=== PATIENT | male | born 1945 | race Caucasian/White ===

== ENCOUNTER 2018-06-28 22:39 | Inpatient (IN) | payer OTHER ==
[~2018-06-28] VITALS: Ht 182.9 cm; Wt 90.1 kg
[2018-06-28 23:29] LABS: Basophils # (auto) 0.1 uL; Basophils % (auto) 0.7 % (0.0-2.0); Eosinophils # (auto) 0.1 uL; Eosinophils % (auto) 0.8 % (0.0-7.0); Hematocrit 39.2 % (41.0-53.0); Hemoglobin 12.8 g/dL (13.5-17.5); Lymphocytes # (auto) 1.5 uL; Lymphocytes % (auto) 9.1 % (10.0-50.0); Mean Corpuscular Hgb Conc. 32.5 g/dL (32.0-36.0); Mean Corpuscular Volume 98.5 fL (80.0-100.0); Monocytes # (auto) 1.3 uL; Monocytes % (auto) 7.4 % (0.0-12.0); Neutrophils # (auto) 13.8 uL; Platelet Count (auto) 264 10^3/uL (140-450); Red Blood Cells 3.98 10^6/uL (4.5-5.90); Red Cell Distribution Width 13.5 % (11.8-14.3); White Blood Cell 16.8 10^3/uL (4.4-10.8)
[2018-06-28 23:45] LABS: Albumin 2.4 g/dL (3.4-5.0); BUN/Creatinine Ratio 17.6; Calcium 7.8 mg/dL (8.5-10.1); Potassium 3.8 mmol/L (3.5-5.1)
[2018-06-28 23:50] LABS: Bilirubin, Total 0.9 mg/dL (0.2-1.0); Total Protein 7.4 g/dL (6.4-8.2)
[2018-06-29] VITALS (65 sets, daily range): BP systolic 87–171; BP diastolic 35–116
[2018-06-29] MEDS ORDERED: FUROSEMIDE 20 MG/2 ML VIAL IV ONE (01:00)
[2018-06-29] MEDS ORDERED: NOREPINEPHRINE 8 MG/250ML KIT 250 ML IV ONE (01:22)
[2018-06-29 01:44] LABS: Alcohol, Urine < 3.0 mg/dL (0-5); Amphetamine Screen, Urine NEGATIVE (NEGATIVE); Barbiturate Scree,Urine NEGATIVE (NEGATIVE); Benzodiazephine Screen, Urine NEGATIVE (NEGATIVE); Cannabinoid Screen, Urine NEGATIVE (NEGATIVE); Cocaine Screen, Urine NEGATIVE (NEGATIVE); Opiate Scree,Urine NEGATIVE (NEGATIVE); Phencyclidine Screen, Urine NEGATIVE (NEGATIVE)
[2018-06-29] MEDS: NOREPINEPHRINE 8 MG/250ML KIT 250 ML IV SCH (01:52)
[2018-06-29] MEDS ORDERED: LEVOFLOXACIN 750MG 150 ML IV ONE (03:30)
[2018-06-29] MEDS: SODIUM CHLORIDE 0.9% 1,000 ML IV SCH ×2 (03:52→10:20)
[2018-06-29] MEDS ORDERED: ACETAMINOPHEN 325 MG TAB PO PRN (04:00)
[2018-06-29] MEDS ORDERED: ONDANSETRON HCL 4 MG/2 ML VIAL IV PRN (04:00)
[2018-06-29] MEDS ORDERED: ATORVASTATIN 20 MG TAB PO ONE (04:00)
[2018-06-29] MEDS ORDERED: ENOXAPARIN SOD 100 MG/1 ML SYRINGE SC ONE (04:00)
[2018-06-29] MEDS ORDERED: NITROGLYCERIN 0.4 MG SL TAB SL PRN (04:00)
[2018-06-29] MEDS ORDERED: MORPHINE SULFATE 4 MG/ML SYR/VIAL IV PRN (04:00)
[2018-06-29] MEDS: ENOXAPARIN SOD 40 MG/0.4 ML SYRINGE SC SCH (10:08)
[2018-06-29] MEDS: ASPirin 81 mg TAB PO SCH (10:08)
[2018-06-29] MEDS: FAMOTIDINE 20 MG TAB PO SCH ×2 (10:08→21:51)
[2018-06-29] MEDS: LEVOFLOXACIN 500MG 100 ML IV SCH (10:08)
[2018-06-29] MEDS: HYDROcodone-ACET 5/325MG TAB PO PRN ×2 (13:12→21:52)
[2018-06-29] MEDS ORDERED: LACT12CR17 EX (14:21)
[2018-06-29] MEDS ORDERED: [UNRECOGNIZED DRUG - CODE] PO (14:21)
[2018-06-29] MEDS ORDERED: ONDA4TAB5 PO (14:21)
[2018-06-29] MEDS ORDERED: TOPI100T68 PO (14:21)
[2018-06-29] MEDS ORDERED: DOCU-94 PO (14:21)
[2018-06-29] MEDS ORDERED: KETO2CRE4 TOP (14:21)
[2018-06-29] MEDS ORDERED: DILT-5 PO (14:21)
[2018-06-29] MEDS ORDERED: [UNRECOGNIZED DRUG - CODE] PO (14:21)
[2018-06-29] MEDS ORDERED: OXY10CRT PO (14:21)
[2018-06-29] MEDS ORDERED: ASPI-266 PO (14:21)
[2018-06-29] MEDS ORDERED: OME20T PO (14:21)
[2018-06-29] MEDS ORDERED: SIMV10TA84 PO (14:21)
[2018-06-29] MEDS ORDERED: CYCL1TAB18 PO (14:21)
[2018-06-29] MEDS ORDERED: VENL75TA PO (14:21)
[2018-06-29] MEDS: MORPHINE SULFATE 4 MG/ML SYR/VIAL IV PRN ×2 (14:51→20:09)
[2018-06-29 15:22] LABS: Basophils # (auto) 0 uL; Basophils % (auto) 0.3 % (0.0-2.0); Eosinophils # (auto) 0.1 uL; Eosinophils % (auto) 0.4 % (0.0-7.0); Hematocrit 40.5 % (41.0-53.0); Hemoglobin 13.4 g/dL (13.5-17.5); Lymphocytes # (auto) 0.9 uL; Lymphocytes % (auto) 6.7 % (10.0-50.0); Mean Corpuscular Hemoglobin 32.1 pg (28.0-32.0); Mean Corpuscular Volume 97.2 fL (80.0-100.0); Monocytes # (auto) 0.7 uL; Monocytes % (auto) 5.5 % (0.0-12.0); Neutrophils # (auto) 11.8 uL; Neutrophils % (auto) 87.1 % (37.0-80.0); Platelet Count (auto) 267 10^3/uL (140-450); Red Blood Cells 4.16 10^6/uL (4.5-5.90); Red Cell Distribution Width 13.5 % (11.8-14.3); White Blood Cell 13.5 10^3/uL (4.4-10.8)
[2018-06-29 15:35] LABS: Albumin 2.3 g/dL (3.4-5.0); Calcium 8.1 mg/dL (8.5-10.1); Magnesium 2.5 mg/dL (1.6-2.6); Potassium 3.4 mmol/L (3.5-5.1)
[2018-06-29 15:38] LABS: BUN/Creatinine Ratio 17.6; Bilirubin, Total 0.9 mg/dL (0.2-1.0); Total Protein 7.2 g/dL (6.4-8.2)
[2018-06-29] MEDS ORDERED: POTASSIUM CHL 20 Meq TABLET PO ONE (16:15)
[2018-06-29] MEDS ORDERED: POTASSIUM EFFERVESENT TAB 25 MEQ ONE (18:15)
[2018-06-29] MEDS ORDERED: POTASSIUM EFFERVESENT TAB 25 MEQ PO ONE (18:15)
[2018-06-29] MEDS: ATORVASTATIN 20 MG TAB PO SCH (21:51)
[2018-06-29] MEDS: TEMAZEPAM 15 MG CAP PO PRN (21:52)
[2018-06-29 22:41] LABS: Urine Bacteria NONE SEEN /hpf (None Seen); Urine Blood 1+ /uL (Negative); Urine Specific Gravity 1.014 (1.001-1.035); Urine WBC 1 /hpf (0 - 3)
[2018-06-30] VITALS (39 sets, daily range): BP systolic 96–167; BP diastolic 40–112
[2018-06-30] MEDS: NOREPINEPHRINE 8 MG/250ML KIT 250 ML IV SCH (01:16)
[2018-06-30] MEDS ORDERED: ALBUTEROL SULF 2.5 MG/0.5ML(0.5%) NEB SOLN NEB PRN (03:15)
[2018-06-30] MEDS ORDERED: IOHEXOL 350 MG/ML 100ML IJ ONE (03:18)
[2018-06-30 04:07] LABS: Basophils # (auto) 0.1 uL; Basophils % (auto) 0.5 % (0.0-2.0); Eosinophils # (auto) 0.1 uL; Eosinophils % (auto) 0.5 % (0.0-7.0); Hematocrit 36.4 % (41.0-53.0); Hemoglobin 12.3 g/dL (13.5-17.5); Lymphocytes # (auto) 0.9 uL; Lymphocytes % (auto) 7.1 % (10.0-50.0); Mean Corpuscular Hemoglobin 32.3 pg (28.0-32.0); Mean Corpuscular Hgb Conc. 33.8 g/dL (32.0-36.0); Mean Corpuscular Volume 95.7 fL (80.0-100.0); Monocytes # (auto) 0.7 uL; Monocytes % (auto) 5.8 % (0.0-12.0); Neutrophils # (auto) 10.6 uL; Neutrophils % (auto) 86.1 % (37.0-80.0); Platelet Count (auto) 245 10^3/uL (140-450); Red Cell Distribution Width 13.2 % (11.8-14.3); White Blood Cell 12.3 10^3/uL (4.4-10.8)
[2018-06-30] MEDS: MORPHINE SULFATE 4 MG/ML SYR/VIAL IV PRN ×4 (04:19→20:20)
[2018-06-30 04:27] LABS: Albumin 1.9 g/dL (3.4-5.0); BUN/Creatinine Ratio 17.1; Calcium 7.3 mg/dL (8.5-10.1); Potassium 3.4 mmol/L (3.5-5.1)
[2018-06-30 04:29] LABS: Bilirubin, Total 0.9 mg/dL (0.2-1.0)
[2018-06-30] MEDS ORDERED: FLUMAZENIL 0.1 MG/ML INJ 10ML MDV IV ONE (09:30)
[2018-06-30] MEDS ORDERED: MIDAZOLAM HCL 1MG/1ML-2 ML VIAL IV ONE (09:30)
[2018-06-30] MEDS ORDERED: fentaNYL CITRATE 100 MCG/2 ML VL IV ONE (09:30)
[2018-06-30] MEDS ORDERED: NALOXONE HCL 0.4 MG/ML VIAL IV ONE (09:30)
[2018-06-30] MEDS ORDERED: LIDOCAINE VISCOUS 2% 15ML UD PO ONE ×2 (09:30→13:15)
[2018-06-30] MEDS: LEVOFLOXACIN 500MG 100 ML IV SCH (10:00)
[2018-06-30] MEDS ORDERED: LIDOCAINE VISCOUS 2% 15ML UD ONE (12:29)
[2018-06-30] MEDS: ENOXAPARIN SOD 40 MG/0.4 ML SYRINGE SC SCH (14:36)
[2018-06-30] MEDS: FAMOTIDINE 20 MG TAB PO SCH ×2 (14:37→22:14)
[2018-06-30] MEDS: ASPirin 81 mg TAB PO SCH (14:38)
[2018-06-30] MEDS: ATORVASTATIN 20 MG TAB PO SCH (22:14)
[2018-06-30] MEDS: TEMAZEPAM 15 MG CAP PO PRN (22:15)
[2018-07-01] VITALS (12 sets, daily range): BP systolic 95–137; BP diastolic 52–95
[2018-07-01] MEDS: NOREPINEPHRINE 8 MG/250ML KIT 250 ML IV SCH (01:16)
[2018-07-01] MEDS: HYDROcodone-ACET 5/325MG TAB PO PRN ×3 (02:40→14:59)
[2018-07-01] MEDS: LEVOFLOXACIN 500MG 100 ML IV SCH (10:32)
[2018-07-01] MEDS: FAMOTIDINE 20 MG TAB PO SCH ×2 (10:32→21:29)
[2018-07-01] MEDS: ENOXAPARIN SOD 40 MG/0.4 ML SYRINGE SC SCH (10:33)
[2018-07-01] MEDS: ASPirin 81 mg TAB PO SCH (10:33)
[2018-07-01] MEDS: OXYCODONE HCL 5MG TAB PO PRN ×2 (11:49→18:22)
[2018-07-01] MEDS ORDERED: VANCOMYCIN PER PHARMACY 0 MG IV SCH (17:30)
[2018-07-01] MEDS: VANCOMYCIN 1,250 MG in D5W 5% 250 ML IV SCH (18:22)
[2018-07-01] MEDS: ATORVASTATIN 20 MG TAB PO SCH (21:28)
[2018-07-01] MEDS: TEMAZEPAM 15 MG CAP PO PRN (21:29)
[2018-07-01] MEDS: oxyCODONE ER 20 MG TAB PO SCH (21:29)
[2018-07-02] MEDS: OXYCODONE HCL 5MG TAB PO PRN (00:05)
[2018-07-02] MEDS: HYDROcodone-ACET 5/325MG TAB PO PRN (03:42)
[2018-07-02 05:00] VITALS: BP 130/74
[2018-07-02 05:57] LABS: Basophils # (auto) 0.1 uL; Basophils % (auto) 0.5 % (0.0-2.0); Eosinophils # (auto) 0.1 uL; Eosinophils % (auto) 0.6 % (0.0-7.0); Hematocrit 39.5 % (41.0-53.0); Hemoglobin 13.3 g/dL (13.5-17.5); Lymphocytes % (auto) 6.9 % (10.0-50.0); Mean Corpuscular Hemoglobin 32.3 pg (28.0-32.0); Mean Corpuscular Hgb Conc. 33.7 g/dL (32.0-36.0); Monocytes # (auto) 0.6 uL; Monocytes % (auto) 4.4 % (0.0-12.0); Neutrophils # (auto) 12.9 uL; Neutrophils % (auto) 87.6 % (37.0-80.0); Platelet Count (auto) 320 10^3/uL (140-450); Red Blood Cells 4.11 10^6/uL (4.5-5.90); Red Cell Distribution Width 13.5 % (11.8-14.3); White Blood Cell 14.8 10^3/uL (4.4-10.8)
[2018-07-02] MEDS: VANCOMYCIN 1,250 MG in D5W 5% 250 ML IV SCH ×2 (06:05→17:14)
[2018-07-02 06:13] LABS: BUN/Creatinine Ratio 11.8; Calcium 7.8 mg/dL (8.5-10.1); Magnesium 2.1 mg/dL (1.6-2.6); Potassium 3.2 mmol/L (3.5-5.1)
[2018-07-02 09:00] VITALS: BP 104/59
[2018-07-02] MEDS: ASPirin 81 mg TAB PO SCH (09:27)
[2018-07-02] MEDS: ENOXAPARIN SOD 40 MG/0.4 ML SYRINGE SC SCH (09:27)
[2018-07-02] MEDS: oxyCODONE ER 20 MG TAB PO SCH ×2 (09:27→22:08)
[2018-07-02] MEDS: FAMOTIDINE 20 MG TAB PO SCH ×2 (09:27→22:08)
[2018-07-02] MEDS: LEVOFLOXACIN 500MG 100 ML IV SCH (09:27)
[2018-07-02] MEDS ORDERED: MORPHINE SULFATE 10 MG/ML INJ 1ML SDV IV PRN (11:00)
[2018-07-02 13:00] VITALS: BP 110/60
[2018-07-02] MEDS ORDERED: POTASSIUM CHL 20 Meq TABLET PO ONE (13:00)
[2018-07-02 17:00] VITALS: BP 114/62
[2018-07-02] MEDS: ATORVASTATIN 20 MG TAB PO SCH (22:08)
[2018-07-03 05:43] VITALS: BP 127/42
[2018-07-03 06:25] LABS: Basophils # (auto) 0.1 uL; Basophils % (auto) 0.4 % (0.0-2.0); Eosinophils # (auto) 0.1 uL; Eosinophils % (auto) 0.5 % (0.0-7.0); Hematocrit 37.2 % (41.0-53.0); Hemoglobin 12.7 g/dL (13.5-17.5); Lymphocytes # (auto) 1.2 uL; Lymphocytes % (auto) 6.7 % (10.0-50.0); Mean Corpuscular Hemoglobin 32.3 pg (28.0-32.0); Mean Corpuscular Hgb Conc. 34.1 g/dL (32.0-36.0); Mean Corpuscular Volume 94.7 fL (80.0-100.0); Monocytes # (auto) 1.1 uL; Monocytes % (auto) 6.1 % (0.0-12.0); Neutrophils # (auto) 15.6 uL; Neutrophils % (auto) 86.3 % (37.0-80.0); Nucleated Red Blood Cells % 0.1 %; Platelet Count (auto) 278 10^3/uL (140-450); Red Blood Cells 3.93 10^6/uL (4.5-5.90); Red Cell Distribution Width 13.7 % (11.8-14.3); White Blood Cell 18.1 10^3/uL (4.4-10.8)
[2018-07-03 06:48] LABS: BUN/Creatinine Ratio 11.4; Calcium 7.6 mg/dL (8.5-10.1); Magnesium 2.1 mg/dL (1.6-2.6); Potassium 3.3 mmol/L (3.5-5.1)
[2018-07-03] MEDS: VANCOMYCIN 1,250 MG in D5W 5% 250 ML IV SCH (06:55)
[2018-07-03 09:20] VITALS: BP 120/100
[2018-07-03] MEDS: LEVOFLOXACIN 500MG 100 ML IV SCH (09:53)
[2018-07-03] MEDS: ENOXAPARIN SOD 40 MG/0.4 ML SYRINGE SC SCH (09:53)
[2018-07-03] MEDS: FAMOTIDINE 20 MG TAB PO SCH (09:54)
[2018-07-03] MEDS: oxyCODONE ER 20 MG TAB PO SCH (09:54)
[2018-07-03] MEDS: ASPirin 81 mg TAB PO SCH (09:54)
[2018-07-03 12:05] VITALS: BP 121/99
[2018-07-03 13:16] VITALS: BP 101/45
[2018-07-03] MEDS ORDERED: VANCOMYCIN 1,250 MG in D5W 5% 250 ML IV SCH ×2 (15:00→23:00)
[2018-07-03] MEDS ORDERED: POTASSIUM CHL 20 Meq TABLET PO ONE (15:00)
[2018-07-03] MEDS: AMPICILLIN 500 MG CAP PO SCH ×2 (15:15→18:00)
[2018-07-03 16:45] VITALS: BP 101/50
[2018-07-03 17:34] VITALS: BP 125/80
== END 2018-07-03 19:00 | disposition home or self-care (01) | DRG 280 ==
LOC: EDBD 22:39 → ER 22:46 → TELE 06-29 03:57 → ICU WEST 06-29 04:46 → TELE-EAST 07-01 13:38
PROVIDERS: ADMIT Nurse Practitioner; ATTEND Internal Medicine
PROC: B246ZZ4 Ultrasonography of Right and Left Heart, Transesophageal (ICD-10-PCS; principal; 2018-06-30)
DX: I21.4 Non-ST elevation (NSTEMI) myocardial infarction (principal); I50.43 Acute on chronic combined systolic (congestive) and diastolic (congestive) heart failure; C18.9 Malignant neoplasm of colon, unspecified; F11.20 Opioid dependence, uncomplicated; R78.81 Bacteremia; E66.9 Obesity, unspecified; E88.09 Other disorders of plasma-protein metabolism, not elsewhere classified; G89.4 Chronic pain syndrome; I44.7 Left bundle-branch block, unspecified; K72.90 Hepatic failure, unspecified without coma; I11.0 Hypertensive heart disease with heart failure; D72.829 Elevated white blood cell count, unspecified; J20.9 Acute bronchitis, unspecified; I25.10 Atherosclerotic heart disease of native coronary artery without angina pectoris; F17.210 Nicotine dependence, cigarettes, uncomplicated; B96.89 Other specified bacterial agents as the cause of diseases classified elsewhere; I95.9 Hypotension, unspecified; Z68.26 Body mass index [BMI] 26.0-26.9, adult; Z88.5 Allergy status to narcotic agent; Z88.8 Allergy status to other drugs, medicaments and biological substances; Z79.82 Long term (current) use of aspirin; Z83.3 Family history of diabetes mellitus; Z82.49 Family history of ischemic heart disease and other diseases of the circulatory system; Z85.038 Personal history of other malignant neoplasm of large intestine; I25.2 Old myocardial infarction; Z71.89 Other specified counseling
CPT/HCPCS: 36415; 36600; 71045; 71275; 76700; 80048; 80053; 80202; 80307; 81001; 82140; 82805; 83605; 83735; 83880; 84443; 84484; 85025; 87040; 87077; 87081; 87186; 93005; 93306; 94640; 94761; 96365; 96367; 96372; 96375; A6257; G0378; J1956; J2250; J7060